=== PATIENT | male | born 1935 | race Caucasian/White ===

== ENCOUNTER → 2017-05-02 | Outpatient (CLI) | payer OTHER ==
[~2017-05-02] MED LIST: ACETAMINOPHEN325 M1 PO; ACYCLOVIR 400400 MG PO; ADVAIR 250-501 EACH INH; ADVAIR HFA115 MCG/21; ALBUTEROL2.5 MG/0.5 INH; APAP/CODEINE ELI5 M1 PO; ASPIRIN EC81 M1 PO; AVELOX 400 MG400 MG PO; BENICAR20 MG PO; BENZONATATE100 MG PO; CARDIZEM CD180 MG PO; CEFUROXIME250 MG PO; DUONEB 2.5-0.5 M3 ML INH; ELIQUIS5 MG PO; FLOMAX0.4 MG PO; FLONASE 0.05%50 MCG NASAL; LEVAQUIN 500 M500 M1 PO; LEVAQUIN 500 M500 M2 PO; LEXAPRO; LEXAPRO 10 MG T10 M1 PO; LEXAPRO20 MG PO; MEDROL4 M1 PO; MUCINEX TA600 MG/TA2 PO; MUCINEX600 MG PO; NEXIUM40 MG PO; NORCO 5-325 TA1 EACH PO; PANTOPRAZOLE SO40 M1 PO; PENICILLIN VK500 M1 PO; PREDNISONE; PREDNISONE 10 M10 MG PO; PREDNISONE 20 M20 M1 PO; PREDNISONE 20 M20 MG; PREDNISONE 20 M20 MG PO; PREDNISONE 5 MG5 M1 PO; PREDNISONE10 MG; PREDNISONE50 MG PO; PROAIR HFA8.5 GM IH; PROAIR HFA8.5 GM INH; PROBIOTIC1 EAC1 PO; PROVENTIL; SINGULAIR 10 MG10 M1 PO; SPIRIVA INH; TRAVATAN Z5 ML OP; ZPAK PO
== END ==
LOC: RAD 14:27
DX: J43.1 Panlobular emphysema (principal); J96.11 Chronic respiratory failure with hypoxia

== ENCOUNTER 2017-05-23 17:14 | Inpatient (IN) | payer OTHER ==
[~2017-05-23] VITALS: Ht 160 cm; Wt 76.6 kg
--- NOTE | ~2017-05-23 | D ---
[facility] [place] [address] DISCHARGE SUMMARY Name: UMM HERNANDEZ Room #: 215-P [facility] IN M.R.#: [id number] Admission: 05/23/17 Attend Phys: Alin Jennings Discharge: 05/30/17 Date of : 37 Report #: [id number] THIS REPORT FOR: //name// CC: Onel Jennings DATE OF SERVICE: 05/30/2017 HISTORY OF PRESENT ILLNESS: The patient is an 82-year-old man with chronic respiratory failure, severe COPD, who was admitted to the hospital with acute COPD exacerbation, and suspected lower respiratory tract infection. Please refer to admission H and P for details. The patient was hospitalized. Heater Installer was consulted. The patient was treated with IV steroids, as well as he was started on cefepime, and aggressive bronchodilator therapy. The patient had very slow improvement. Respiratory sounds remain significantly diminished. On 05/27/2017, the patient developed atrial fibrillation. He was treated with Cardizem drip. He converted to normal sinus rhythm. Scanning Clerk was consulted. Cardiac echo was taken, that showed normal ejection fraction. Pulmonary artery pressure was 35. The patient was changed to the oral Cardizem, and was started on Eliquis for anticoagulation. Given the patient's long hospital stay and overall debility, rehab was recommended. The patient will be transferred to the acute rehab later today. I spent more than 30 minutes to coordinate the patient's discharge from the hospital. FINAL DIAGNOSES: 1. Lower respiratory tract infection, clinically much better. 2. Pbenc-fa-pmkqqsj obstructive pulmonary disease exacerbation, baseline severe chronic obstructive pulmonary disease and chronic respiratory failure. Clinically much better. 3. Atrial fibrillation, developed on 05/27/2017. Treated with oral Cardizem and Eliquis. 4. Urinary retention. 5. Hypertension. 6. Obstructive sleep apnea. <ELECTRONICALLY SIGNED> By: Radha Echevarria MD 07/30/17 1443 1222 1234 Radha Echevarria MD /nt
--- NOTE | ~2017-05-23 | HC ---
[facility] [address] [address] CONSULTATION Name: UMM HERNANDEZ Room #: [facility]- ADM IN M.R.#: [id number] Admission: 05/23/17 Attend Phys: Alin Jennings Discharge: Date of : 36 Report #: [id number] THIS REPORT FOR: //name// CC: Onel Jennings MD DATE OF SERVICE: 05/24/2017 REFERRING PROVIDER: Alin Jennings DO REASON FOR CONSULTATION: COPD exacerbation. CHIEF COMPLAINT: Shortness of breath. HISTORY OF PRESENT ILLNESS: Our group was asked to see this patient in consultation while hospitalized at [facility], well known to me from office visits and prior hospital stays. He has not been hospitalized in the past few years. He has a longstanding history of very severe COPD and has been participating in pulmonary rehab and is on nocturnal Trilogy ventilation assist device to help manage his COPD. He was recently seen in the office May 02 with complaints of cough, shortness of breath, was placed on a treatment with Levaquin and prednisone. The patient apparently had improved, but had some recurrent symptoms of fever, cough, shortness of breath and represented to the Emergency Department, improved with some systemic steroids and bronchodilators, now admitted for further management. ALLERGIES: None known. PAST MEDICAL HISTORY: 1. Severe chronic obstructive pulmonary disease. 2. Gastroesophageal reflux disease. 3. Chronic hypoxemic respiratory failure and chronic hypercapnic respiratory failure, on Trilogy ASV mode at night. 4. History of obstructive sleep apnea. FAMILY HISTORY: Noncontributory due to advanced age. SOCIAL HISTORY: Ex-smoker, quitting in 1996. No alcohol consumption. OUTPATIENT MEDICATIONS: Include: 1. Tylenol p.r.n. 2. Proventil p.r.n. 3. Lexapro 10 mg daily. 4. Aspirin 81 mg daily. 5. Nexium 40 mg daily. [facility] [address] [place] [address] CONSULTATION Name: UMM HERNANDEZ Room #: [facility]#: [id number] Admission: 05/23/17 Attend Phys: Alin Jennings Discharge: Date of : 36 Report #: [id number] 6. Flonase. 7. Advair 250/50 twice daily. 8. Prednisone as needed for exacerbations. 9. Spiriva once daily. 10. Travoprost eye drops. REVIEW OF SYSTEMS: CONSTITUTIONAL: Noted fever, no chills or sweats. ENT: No upper respiratory congestion. CARDIOVASCULAR: No chest pains or palpitations. GASTROINTESTINAL: No nausea, vomiting, diarrhea, constipation or abdominal pain. GENITOURINARY: No dysuria, no frequency. INTEGUMENT: Denies any rash. MUSCULOSKELETAL: No joint pains or swelling. PHYSICAL EXAMINATION: VITAL SIGNS: Temperature 38.3 overnight, temperature current 37.0, pulse 100, respiratory 20, blood pressure 134/60, oxygen saturation 96%. GENERAL: This is a pleasant elderly male, in no distress. HEENT: Clear oropharynx. NECK: Supple, no lymphadenopathy. LUNGS: Diminished. Expiratory wheezes noted. No crackles. CARDIOVASCULAR: Heart regular. No murmurs noted. ABDOMEN: Soft, nontender, no masses. EXTREMITIES: No edema. IMAGING AND LABORATORY DATA: Chest x-ray revealed hyperinflation consistent with COPD and chronic basilar fibrotic changes. White blood cell count was 12,000, hemoglobin 13, hematocrit 40, platelet count 296. Arterial blood gas done on 3 liters nasal cannula revealed pH 7.40, pCO2 of 48, pO2 of 81, bicarbonate 29. Sodium 134, potassium 4.3, chloride 98, bicarbonate 32, BUN 17, creatinine 1.1, glucose 161. IMPRESSION: 1. Acute exacerbation of chronic obstructive pulmonary disease, likely due to lower respiratory infection. 2. Chronic hypercapnic hypoxemic respiratory failure. 3. Sleep apnea. 4. Underlying severe emphysema. SUGGESTIONS: 1. Steroids with bronchodilators. 2. Continue with current antibiotic therapy. 3. Await cultures. 4. Nasal [place]ab [place] [address] CONSULTATION Name: UMM HERNANDEZ Room #: [address] [place] [address] [place] M.R.#: [id number] Admission: 05/23/17 Attend Phys: Alin Jennings Discharge: Date of : 37 Report #: [id number] 5. Mobilize as tolerated. 6. Additional recommendations to follow. Son not at bedside for me to discuss and assist with translation of my findings at this time. <ELECTRONICALLY SIGNED> By: Anthony Denise MD 05/27/17 1535 1851 0306 Anthony Denise MD /nt
--- NOTE | ~2017-05-23 | 2DMMODE ---
[facility] [address] [place] [address] 2 D/M-MODE ECHOCARDIOGRAM Name: UMM HERNANDEZ Room #: 215-P ADM IN M.R.#: [id number] Admission: 05/23/17 Attend Phys: Alin Camejo Discharge: Date of : 37 Date of Service: 05/28/17 1541 Report #: [id number] THIS REPORT FOR: //name// APPROVED REPORT Study performed: 05/28/2017 14:41:46 EXAM: Comprehensive 2D, Doppler, and color-flow Echocardiogram Patient Location: Bedside Room #: [facility] Status: routine BSA: 1.85 HR: 113 bpm BP: 141/73 mmHg Rhythm: Atrial Fibrillation Other Information Study Quality: Adequate Indications Atrial Fibrillation Hx: HTN, COPD 2D Dimensions RVDd: 33.41 mm LVEF(%): 65.89 (>50%) IVSd: 12.31 (7-11mm) LVOT Diam: 20.35 (18-24mm) LVDd: 41.84 mm PWd: 9.30 (7-11mm) Ascending Ao: 34.87 (22-36mm) LVDs: 26.81 (25-40mm) Aortic Root: 35.01 mm Burns's LVEF: 65.89 % Volumes Left Atrial Volume (Systole) Single Plane 4CH: 33.10 mL Single Plane 2CH: 43.11 mL LA ESV Index: 22.00 mL/m2 Aortic Valve AoV Peak Donavan.: 1.55 m/s AO Peak Gr.: 9.67 mmHg LVOT Max P.41 mmHg LVOT Max V: 1.04 m/s BEKA Vmax: 2.18 cm2 Mitral Valve MV Decel. Time: 179.07 ms [facility] [address] [place] [address] 2 D/M-MODE ECHOCARDIOGRAM Name: MARYNIGELMI Room #: [address] [place] [address] [place] ..#: [id number] Admission: 05/23/17 Attend Phys: Alin Camejo Discharge: Date of : 37 Date of Service: 05/28/17 1541 Report #: [id number] MV E Max Donavan.: 1.08 m/s Pulmonary Valve PV Peak Donavan.: 1.19 m/s PV Peak Gr.: 5.79 mmHg Tricuspid Valve TR Peak Donavan.: 2.48 m/s RAP Estimate: 10.00 mmHg TR Peak Gr.: 24.73 mmHg PA Pressure: 35.00 mmHg Left Ventricle The left ventricle is normal size. Mild basal septal hypertrophy is present. Left ventricular systolic function is normal. LVEF is 50-55%. This study is not technically sufficient to allow evaluation of the LV diastolic function. Right Ventricle The right ventricle is normal size. The right ventricular systolic function is normal. Atria The left atrium size is normal. The right atrium size is normal. Aortic Valve Aortic valve is thickened and calcified. Trace aortic regurgitation. There is no aortic valvular stenosis. Mitral Valve Mitral valve leaflets are mildly thickened. Mild mitral annular calcification. Trace mitral regurgitation. Tricuspid Valve The tricuspid valve is normal in structure. Mild to moderate tricuspid regurgitation. Estimated PAP is 35mmHg. Pulmonic Valve The pulmonary valve is normal in structure. Trace pulmonic regurgitation. Great Vessels The aortic root is normal in size. The ascending aorta is normal in size. IVC is normal in size and collapses <50% with inspiration. Pericardium [facility] [address] [place] [address] 2 D/M-MODE ECHOCARDIOGRAM Name: UMM HERNANDEZ Room #: 215-P ADM IN M.R.#: [id number] Admission: 05/23/17 Attend Phys: Alin Camejo Discharge: Date of : 37 Date of Service: 05/28/17 1541 Report #: [id number] There is no pericardial effusion. <Conclusion> The left ventricle is normal size. Left ventricular systolic function is normal. The right ventricle is normal size. The left atrium size is normal. The right atrium size is normal. Trace aortic regurgitation. There is no aortic valvular stenosis. Mitral valve leaflets are mildly thickened. Mild mitral annular calcification. Trace mitral regurgitation. Mild to moderate tricuspid regurgitation. Estimated PAP is 35mmHg. <ELECTRONICALLY SIGNED> By: Sumanth Yoo MD 05/28/17 1541 1541 1541 Sumanth Yoo MD /INF
--- NOTE | ~2017-05-23 | EKG ---
[address] [address] ELECTROCARDIOGRAM REPORT Name: UMM HERNANDEZ Room #: 435-P ADM IN M.R.#: [id number] Admission: 05/23/17 Attend Phys: Alin Jennings Discharge: Date of : 36 Report #: [id number] THIS REPORT FOR: //name// [facility] ED Test Date: 2017-05-23 Test Time: 17:26:51 Pat Name: UMM HERNANDEZ Department: Room: 435 P Gender: M Poly Area Supervisor: DEBBI : 1935 Requested By: Maria C Pitt Order Number: [id number] MD: Measurements Intervals [place] Rate: 107 P: 97 IA: 154 QRS: 70 QRSD: 106 T: 64 QT: 307 QTc: 410 Interpretive Statements Sinus tachycardia Biatrial enlargement Inferior infarct, old Compared to ECG 01/29/2015 21:26:02 Myocardial infarct finding now present Sinus rhythm no longer present [email or web address] By: 1726 1726 Epiphany EpiphanyMD /EPI
--- NOTE | ~2017-05-23 | D ---
[facility] [address] [place] [address] DISCHARGE SUMMARY Name: UMM HERNANDEZ Room #: 215-P [facility] IN M.R.#: [id number] Admission: 05/23/17 Attend Phys: Alin Jennings Discharge: 05/30/17 Date of : 36 Report #: [id number] THIS REPORT FOR: //name// CC: Onel Jennings DATE OF SERVICE: 05/30/2017 ADDENDUM FINAL DIAGNOSES: 1. Lower respiratory tract infection, clinically much better. 2. Jinjs-zl-qmubiqq obstructive pulmonary disease exacerbation, baseline severe chronic obstructive pulmonary disease and chronic respiratory failure. Clinically much better. 3. Atrial fibrillation, developed on 05/27/2017. Treated with oral Cardizem and Eliquis. 4. Urinary retention. 5. Hypertension. 6. Obstructive sleep apnea. <ELECTRONICALLY SIGNED> By: Radha Echevarria MD 07/30/17 1444 1218 1225 Radha Echevarria MD /nt
--- NOTE | ~2017-05-23 | HC ---
[facility] [place] [address] CONSULTATION Name: UMM HERNANDEZ Room #: 215-P [facility] IN M.R.#: [id number] Admission: 05/23/17 Attend Phys: Alin Jennings Discharge: 05/30/17 Date of : 36 Report #: [id number] THIS REPORT FOR: //name// CC: Onel Jennings DATE OF SERVICE: 05/28/2017 HISTORY OF PRESENT ILLNESS: The patient is an 82-year-old male admitted with fever to 101 temperature, respiratory distress, COPD exacerbation, and pneumonia. He is noted to have an acute on chronic COPD exacerbation. His course has been complicated by urinary retention for which he was straight catheterized. He also has now had the onset of atrial fibrillation apparently last night and has been started on a diltiazem drip. We are seeing him in rehabilitation medicine consultation. PAST MEDICAL HISTORY: Includes COPD for which he was on O2 at home, 3 liters nasal cannula. Past history also includes hypertension, depression, and asthma. HABITS: Apparently never smoked. No history of alcohol abuse. ALLERGIES: No known drug allergies. SOCIAL HISTORY: Lives in a house with his son, no steps. Did not utilize gait aids premorbidly. REVIEW OF SYSTEMS: Does complain of some shortness of breath and just got back from chest x-ray. No complaints of abdominal pain or focal upper or lower extremity pain complaints. PHYSICAL EXAMINATION: GENERAL: The patient is an 82-year-old male, apparently primarily Asim-speaking who nevertheless could verbalize some basic Mauritanian phrases. He could follow basic 1-step commands. VITAL SIGNS: His last recorded temperature is 97.2, pulse 96, respirations 18, and blood pressure 124/70. NEUROLOGIC: Facies are symmetric. He is on nasal prong O2, currently 2.5 liters. He has functional range of motion of both upper extremities. No obvious focal weakness. DTRs are trace to 1. Lower extremities, no focal calf swelling. Functional range of motion with strength probably a grade 4-/5. Tone appeared to be intact. He has worked in physical therapy with sit to stand, standby assistance. Gait 120 feet min assist, handheld assistance. ASSESSMENT: An 82-year-old male with the following problem list: 1. Pulmonary rehabilitation. 2. Medical complexity with generalized debilitation. [address] [address] CONSULTATION Name: UMM HERNANDEZ Room #: [address] [place] [address] IN M.R.#: [id number] Admission: 05/23/17 Attend Phys: Alin Jennings Discharge: 05/30/17 Date of : 37 Report #: [id number] 3. Chronic obstructive pulmonary disease exacerbation with acute on chronic respiratory failure. 4. Atrial fibrillation, is now on a diltiazem drip. 5. Urinary retention, status post straight catheterization, is improved. 6. Elevated blood glucose secondary to steroids. 7. Obstructive sleep apnea. 8. Hypertension. 9. Chronic home oxygen use. PLAN: Occupational Therapy to reevaluate if the patient is amenable. Currently, he is on the diltiazem drip in the CCU. At this point, we will continue to follow along with you regarding his rehab therapy needs as he further medically stabilizes. <ELECTRONICALLY SIGNED> By: Onel Ni MD 05/31/17 1408 1640 1919 Oenl Ni MD /nt
--- NOTE | ~2017-05-23 | EKG ---
[address] [address] ELECTROCARDIOGRAM REPORT Name: UMM HERNANDEZ Room #: 435-P ADM IN M.R.#: [id number] Admission: 05/23/17 Attend Phys: Alin Jennings Discharge: Date of : 36 Report #: [id number] THIS REPORT FOR: //name// [facility] Test Date: 2017-05-28 Test Time: 01:31:49 Pat Name: UMM HERNANDEZ Department: Room: 435 P Gender: M Information Assistant: jhoan : 1935 Requested By: Mimi Sin Order Number: [id number] MD: Juanjo Roth Measurements Intervals [place] Rate: 146 P: [place]: QRS: 69 QRSD: 80 T: 46 QT: 310 QTc: 484 Interpretive Statements Atrial fibrillation with rapid V-rate Compared to ECG 05/23/2017 17:26:51 Atrial fibrillation has replaced sinus tachycardia Electronically Signed On 05-28-2017 7:56:06 INTERNAL AFFAIRS INVESTIGATOR by Juanjo Roth [email or web address] <ELECTRONICALLY SIGNED> By: Juanjo Roth MD, [facility] 05/28/17 0756 013 013 Juanjo Roth MD, FAC /EPI
--- NOTE | ~2017-05-23 | EKG ---
[address] [address] ELECTROCARDIOGRAM REPORT Name: UMM HERNANDEZ Room #: 435-P ADM IN M.R.#: [id number] Admission: 05/23/17 Attend Phys: Alin Jennings Discharge: Date of : 36 Report #: [id number] THIS REPORT FOR: //name// [facility] ED Test Date: 2017-05-23 Test Time: 17:26:51 Pat Name: UMM HERNANDEZ Department: Room: 435 P Gender: M Top Stop Attacher: DEBBI : 1935 Requested By: Maria C Pitt Order Number: [id number] MD: Juanjo Roth Measurements Intervals [place] Rate: 107 P: 97 [place]: 154 QRS: 70 QRSD: 106 T: 64 QT: 307 QTc: 410 Interpretive Statements Sinus tachycardia Right atrial abnormality Compared to ECG 01/29/2015 21:26:02 No significant change was found Electronically Signed On 05-24-2017 8:48:58 HAT STOCK LAMINATING MACHINE OPERATOR by Juanjo Roth [email or web address] <ELECTRONICALLY SIGNED> By: Juanjo Roth MD, [facility] 05/24/17 0848 1725 25 Juanjo Roth MD, FACC /EPI
[~2017-05-23 17:14] MED LIST changes: -CARDIZEM CD180 MG PO; -CEFUROXIME250 MG PO; -DUONEB 2.5-0.5 M3 ML INH; -ELIQUIS5 MG PO; -FLOMAX0.4 MG PO; -MEDROL4 M1 PO; -PANTOPRAZOLE SO40 M1 PO; -PROBIOTIC1 EAC1 PO
[2017-05-23 17:25] VITALS: BP 148/64
[2017-05-23 17:51] LABS: ABSOLUTE NEUTROPHILS 9.8 thou/uL (1.4-8.2); BASOPHILS 0.2 % (0.0-2.0); EOSINOPHILS 1.7 % (0.0-3.0); HEMATOCRIT 39.9 % (42.0-52.0); HEMOGLOBIN 13.1 gm/dL (14.0-18.0); LYMPHOCYTES 9.9 % (24.0-44.0); MCH 27.2 pg (26.0-34.0); MCHC 32.7 g/dL (28.0-37.0); MCV 83.2 fL (80.0-100.0); MONOCYTES 5.8 % (1.0-8.0); PLATELET COUNT 296 thou/uL (150-400); POLYS 82.4 % (36.0-66.0); RBC 4.79 mil/uL (4.50-6.00); RDW 15.1 % (10.5-14.5); WBC 11.8 thou/uL (4.0-11.0)
[2017-05-23 17:58] LABS: URINE BILIRUBIN NEGATIVE (Negative); URINE BLOOD 3+ (Negative); URINE CLARITY CLEAR; URINE COLOR YELLOW; URINE GLUCOSE-RANDOM* NEGATIVE (Negative); URINE KETONES NEGATIVE (Negative); URINE LEUKOCYTES-REFLEX NEGATIVE (Negative); URINE NITRITE-REFLEX NEGATIVE (Negative); URINE PROTEIN (DIPSTICK) TRACE (Negative); URINE SPECIFIC GRAVITY >= 1.030 (1.005-1.035); URINE UROBILINOGEN 0.2 E.U./dl (0.2-1.0)
[2017-05-23 18:01] LABS: CALCIUM 9.2 mg/dL (8.5-10.1); CREATININE 1.1 mg/dL (0.7-1.3); POTASSIUM 4.3 mmol/L (3.5-5.1)
[2017-05-23 18:05] LABS: BACTERIA-REFLEX 1-9 Few /HPF (None Seen); CASTS None Seen /LPF (None Seen); CRYSTALS None Seen /LPF (None Seen); SQUAMOUS None Seen /LPF (0-3); URINE RBC 3-10 Few /HPF (0-2); URINE WBC-REFLEX 0-5 Rare /HPF (0-5)
[2017-05-23 18:07] LABS: DIRECT BILIRUBIN 0.1 mg/dL (<0.1-0.3); TOTAL BILIRUBIN 0.3 mg/dL (<0.1-1.0)
[2017-05-23 18:32] LABS: BE(vivo) 3.2 mmol/L (-2 to +3); HCO3 28.9 mmol/L (22.0-26.0); PO2 80.9 mmHg (80.0-100.0); pH 7.397 (7.360-7.450); sO2 95.8 % (92.0-98.0)
[2017-05-23 20:02] VITALS: BP 121/49
[2017-05-23 20:22] VITALS: BP 121/49
[2017-05-24 03:45] VITALS: BP 136/73
[2017-05-24 16:00] VITALS: BP 134/60
[2017-05-24 20:22] VITALS: BP 116/59
[2017-05-24 22:11] LABS: GLYCOHEMOGLOBIN (HGB A1C) 6.1 % (4.8-5.6)
[2017-05-25 02:50] VITALS: BP 133/68
[2017-05-25 06:33] LABS: HEMATOCRIT 36.6 % (42.0-52.0); HEMOGLOBIN 11.6 gm/dL (14.0-18.0); MCH 26.9 pg (26.0-34.0); MCHC 31.7 g/dL (28.0-37.0); MCV 84.8 fL (80.0-100.0); RBC 4.32 mil/uL (4.50-6.00); RDW 15.2 % (10.5-14.5); WBC 17.5 thou/uL (4.0-11.0)
[2017-05-25 08:00] VITALS: BP 150/78
[2017-05-25 16:00] VITALS: BP 133/58
[2017-05-25 20:00] VITALS: BP 157/74
[2017-05-26 03:25] VITALS: BP 163/88
[2017-05-26 09:14] VITALS: BP 122/54
[2017-05-26 17:33] VITALS: BP 116/66
[2017-05-26 17:36] VITALS: BP 133/60
[2017-05-26 19:37] VITALS: BP 148/78
[2017-05-27 04:25] VITALS: BP 129/58
[2017-05-27 06:36] LABS: ABSOLUTE NEUTROPHILS 9.6 thou/uL (1.4-8.2); BASOPHILS 0.1 % (0.0-2.0); HEMATOCRIT 37.3 % (42.0-52.0); HEMOGLOBIN 12.1 gm/dL (14.0-18.0); LYMPHOCYTES 10.5 % (24.0-44.0); MCHC 32.5 g/dL (28.0-37.0); MCV 83.1 fL (80.0-100.0); MONOCYTES 4.4 % (1.0-8.0); PLATELET COUNT 367 thou/uL (150-400); RBC 4.49 mil/uL (4.50-6.00); RDW 15.4 % (10.5-14.5); WBC 11.3 thou/uL (4.0-11.0)
[2017-05-27 06:49] LABS: CALCIUM 8.9 mg/dL (8.5-10.1); MAGNESIUM 2.4 mg/dL (1.8-2.4); POTASSIUM 4.6 mmol/L (3.5-5.1)
[2017-05-27 08:00] VITALS: BP 188/102
[2017-05-27 16:00] VITALS: BP 156/78
[2017-05-27 22:50] VITALS: BP 144/77
[2017-05-28 01:43] VITALS: BP 135/67
[2017-05-28 05:09] VITALS: BP 127/70
[2017-05-28 08:00] VITALS: BP 141/73
[2017-05-28 15:26] VITALS: BP 124/70
[2017-05-28 20:38] VITALS: BP 126/68
[2017-05-29 00:15] VITALS: BP 118/64
[2017-05-29 04:30] VITALS: BP 120/59
[2017-05-29 09:05] VITALS: BP 123/66
[2017-05-29 11:58] VITALS: BP 139/63
[2017-05-29 15:50] VITALS: BP 133/51
[2017-05-29 19:22] VITALS: BP 131/68
[2017-05-30 03:25] LABS: ABSOLUTE NEUTROPHILS 6.8 thou/uL (1.4-8.2); HEMATOCRIT 38.7 % (42.0-52.0); HEMOGLOBIN 12.7 gm/dL (14.0-18.0); LYMPHOCYTES 12.8 % (24.0-44.0); MCH 27.3 pg (26.0-34.0); MCHC 32.8 g/dL (28.0-37.0); MCV 83.3 fL (80.0-100.0); MONOCYTES 3.7 % (1.0-8.0); PLATELET COUNT 387 thou/uL (150-400); POLYS 83.5 % (36.0-66.0); RBC 4.64 mil/uL (4.50-6.00); RDW 15.2 % (10.5-14.5); WBC 8.2 thou/uL (4.0-11.0)
[2017-05-30 03:31] LABS: CALCIUM 8.2 mg/dL (8.5-10.1); CREATININE 0.8 mg/dL (0.7-1.3); POTASSIUM 4.4 mmol/L (3.5-5.1)
[2017-05-30 03:53] VITALS: BP 138/68
[2017-05-30 07:35] VITALS: BP 123/53
[2017-05-30 11:45] VITALS: BP 134/57
[2017-05-30] MEDS ORDERED: PREDNISONE 20 M20 M1 PO (12:26)
[2017-05-30] MEDS ORDERED: PANTOPRAZOLE SO40 M1 PO (12:26)
[2017-05-30] MEDS ORDERED: CEFUROXIME250 MG PO (12:26)
[2017-05-30] MEDS ORDERED: ELIQUIS5 MG PO (12:26)
[2017-05-30] MEDS ORDERED: FLOMAX0.4 MG PO (12:26)
[2017-05-30] MEDS ORDERED: CARDIZEM CD180 MG PO (12:26)
[2017-05-30] MEDS ORDERED: DUONEB 2.5-0.5 M3 ML INH (12:26)
[2017-05-30 15:15] LABS: URINE BILIRUBIN NEGATIVE (Negative); URINE BLOOD TRACE (Negative); URINE CLARITY CLEAR; URINE COLOR YELLOW; URINE GLUCOSE-RANDOM* NEGATIVE (Negative); URINE KETONES NEGATIVE (Negative); URINE LEUKOCYTES-REFLEX NEGATIVE (Negative); URINE NITRITE-REFLEX NEGATIVE (Negative); URINE PROTEIN (DIPSTICK) NEGATIVE (Negative); URINE UROBILINOGEN 0.2 E.U./dl (0.2-1.0)
[2017-12-30] MEDS ORDERED: FLOMAX0.4 MG PO (16:12)
[2017-12-30] MEDS ORDERED: LEVAQUIN 500 M500 M1 PO (16:12)
[2017-12-30] MEDS ORDERED: MEDROL4 M1 PO (16:13)
== END 2017-05-30 16:18 | DRG 871 ==
LOC: ER 17:14 → 4S 18:14 → EROBS 18:14 → 4S 19:33 → ENTRNSPT 05-28 14:13 → EDTRNSPTSTS 05-28 14:22 → EDTRNSPT 05-28 14:22 → EDTRNSPTTYP 05-28 14:22 → 2N 05-28 14:40 → DELTRNSPT 05-28 14:45 → 2N 05-30 16:18
PROVIDERS: Hospitalist; Internal Medicine Endocrinology, Diabetes & Metabolism; Internal Medicine Pulmonary Disease; Nurse Practitioner; Physician Assistant
PROC: 5A09357 Assistance with Respiratory Ventilation, Less than 24 Consecutive Hours, Continuous Positive Airway Pressure (ICD-10-PCS; principal; 2017-05-25)
PROC: 5A09357 Assistance with Respiratory Ventilation, Less than 24 Consecutive Hours, Continuous Positive Airway Pressure (ICD-10-PCS; 2017-05-28)
PROC: 5A09357 Assistance with Respiratory Ventilation, Less than 24 Consecutive Hours, Continuous Positive Airway Pressure (ICD-10-PCS; 2017-05-29)
DX: A41.9 Sepsis, unspecified organism (principal); J18.9 Pneumonia, unspecified organism; E43 Unspecified severe protein-calorie malnutrition; J96.22 Acute and chronic respiratory failure with hypercapnia; J96.21 Acute and chronic respiratory failure with hypoxia; J44.1 Chronic obstructive pulmonary disease with (acute) exacerbation; J44.0 Chronic obstructive pulmonary disease with (acute) lower respiratory infection; I10 Essential (primary) hypertension; F32.9 Major depressive disorder, single episode, unspecified; J45.909 Unspecified asthma, uncomplicated; K59.00 Constipation, unspecified; K21.9 Gastro-esophageal reflux disease without esophagitis; G47.33 Obstructive sleep apnea (adult) (pediatric); I48.91 Unspecified atrial fibrillation; R33.9 Retention of urine, unspecified; Z79.82 Long term (current) use of aspirin; Z79.899 Other long term (current) drug therapy; Z28.21 Immunization not carried out because of patient refusal; Z87.891 Personal history of nicotine dependence; Z68.29 Body mass index [BMI] 29.0-29.9, adult
CPT/HCPCS: 10081; 10100

== ENCOUNTER 2017-05-30 10:27 | Inpatient (IN) | payer OTHER ==
[~2017-05-30] VITALS: Ht 160 cm; Wt 77.6 kg
--- NOTE | ~2017-05-30 | HC ---
[facility] [place] [address] CONSULTATION Name: UMM HERNANDEZ Room #: 513-P ADM IN M.R.#: [id number] Admission: 05/30/17 Attend Phys: Onel Ni MD Discharge: Date of : 36 Report #: [id number] THIS REPORT FOR: //name// CC: Onel Monaco CHIEF COMPLAINT: Urinary retention. HISTORY OF PRESENT ILLNESS: The patient is being seen today at the request of Dr. Jennings for evaluation and management of urinary retention. He is now in the Rehab Unit after having been hospitalized with pneumonia, sepsis and COPD. He reports perhaps mild slowing of his stream prior to admission, but is now having urinary incontinence and catheterized urine volumes above 500 mL. ALLERGIES: None. ILLNESSES: COPD, pneumonia, sepsis. CURRENT MEDICATIONS: Include losartan 100 mg daily, diltiazem 180 mg daily, citalopram 20 mg daily, aspirin 81 mg daily, Protonix mg daily, tamsulosin 0.4 mg b.i.d., prednisone 30 mg b.i.d., albuterol, ipratropium. Singulair 10 mg at bedtime, latanoprost at bedtime, cefuroxime 250 mg b.i.d., Eliquis 5 mg b.i.d. Budesonide 0.5 mg b.i.d. Senna laxative daily. REVIEW OF SYSTEMS: He denies shortness of breath or chest pain. PHYSICAL EXAMINATION: GENERAL: He is a comfortable gentleman sitting up in bed. VITAL SIGNS: Temperature is 36.9, blood pressure is 150/76, pulse 78, respirations 18. Cath urine volume earlier today was 550 mL. LABORATORY DATA: White count 9700, hemoglobin 13.0, hematocrit 39.3, platelets 412,000. Sodium 136, potassium 4.2, chloride 101, CO2 of 37, creatinine 0.8. IMPRESSION: Urinary retention with overflow incontinence. PLAN: Ideally he be best treated with intermittent catheterization, although the nurses have had somewhat of a traumatic time catheterizing him. Therefore, Doty will be placed for 72 hours or so, then he will be given a voiding trial. I explained this in detail with his son as an equities trader. <ELECTRONICALLY SIGNED> By: Onel Walls MD 06/05/17 1008 0706 1242 Onel Walls MD /nt
--- NOTE | ~2017-05-30 | PLAN ---
[facility] [place] [address] REHAB UNIT PLAN OF CARE Name: UMM HERNANDEZ Room #: 513-P [facility] IN M.R.#: [id number] Admission: 05/30/17 Attend Phys: Onel Ni MD Discharge: 06/06/17 Date of : 37 Report #: [id number] THIS REPORT FOR: //name// CC: Onel Monaco DATE OF SERVICE: 06/01/2017 PROGRESS NOTE/OVERALL PLAN OF CARE The patient is seen earlier. He was in no distress. Last recorded temperature 36.6, pulse 75, respirations 15, blood pressure 119/60. He has been working in therapies. Transfers are contact guard, gait 200 feet contact guard. upper body dressing, supervision with lower body dressing, contact guard. Nursing indicated that a Doty was inserted yesterday and he is followed by Urology. ASSESSMENT: 1. Pulmonary rehabilitation. 2. Acute exacerbation of chronic obstructive pulmonary disease. 3. Acute on chronic hypercapnic respiratory failure. 4. Lower respiratory tract infection. 5. Urinary retention with Urology involved. 6. Anxiety. 7. Tobacco abuse in the past. 8. Depression. 9. Hypertension. PLAN: The overall plan of care is based on the preadmission screen, post-admission physician evaluation and information garnered from therapy assessments. 1. Estimated length of stay is going to be probably at least 5-7 days and potentially longer if warranted depending upon how he does. 2. Medical prognosis is reasonably good. 3. Anticipated interventions includes the interdisciplinary acute inpatient rehabilitation program with PT and OT, rehab nursing assisting regarding medication management, skin care prophylaxis, bowel and bladder issues and nursing education. 4. Anticipated functional outcomes would be for him to become modified independent with basic mobility and ADLs potentially without gait aids. 5. Discharge destination would be for him to discharge back home with family where he lives with his son and [id number]. 6. Expected therapy by discipline includes PT and OT 1-1/2 hours per day each [address] [address] REHAB UNIT PLAN OF CARE Name: KACIE HERNANDEZMICHAEL Room #: 513-P [facility] IN ..#: [id number] Admission: 05/30/17 Attend Phys: Onel Ni MD Discharge: 06/06/17 Date of : 37 Report #: [id number] five days a week throughout the duration of the acute inpatient rehabilitation stay. <ELECTRONICALLY SIGNED> By: Onel Ni MD 06/11/17 1510 0715 0946 Onel Ni MD /[facility]
--- NOTE | ~2017-05-30 | H ---
[facility] [place] [address] HISTORY AND PHYSICAL Name: UMM HERNANDEZ Room #: 513-P ADM IN M.R.#: [id number] Admission: 05/30/17 Attend Phys: Onel Ni MD Discharge: Date of : 36 Report #: [id number] THIS REPORT FOR: //name// CC: Onel Monaco DATE OF SERVICE: 05/30/2017 HISTORY AND PHYSICAL AND POST-ADMISSION PHYSICIAN EVALUATION HISTORY OF PRESENT ILLNESS: The patient is an 82-year-old male who was originally admitted to [facility] on 05/23/2017 with a fever to 101, respiratory distress, COPD exacerbation and pneumonia. He was noted to have an acute on chronic COPD exacerbation. His course was complicated by urinary retention for which he has been straight catheterized. He also had the onset of atrial fibrillation and was started on a diltiazem drip. He has been needing nasal prong O2. He has hypercapnic hypoxemic respiratory failure secondary to emphysema. Cardiology has been involved regarding his atrial fibrillation as well as with his pulmonary disease. Internal Medicine has been assisting regarding his overall medical management, hypertension and elevated blood glucose secondary to steroids. He was able to be changed from diltiazem drip to oral Cardizem with conversion to normal sinus rhythm. He is anticoagulated with Eliquis. Urology saw him this morning and their plan is to place a Doty if his PVR remains elevated. Nurses did note some difficulty with straight catheterization last night. The patient has medical complexity with generalized debilitation and has now been admitted for acute in-hospital inpatient rehabilitation. PAST MEDICAL HISTORY: Includes COPD, depression and hypertension. HABITS: Past tobacco usage, quit several years ago. MEDICATIONS: Please see the full medication listing. Each of these medications was individually reconciled and includes his vitamins, herbals and supplements. There is some language barrier, but it does include those to the best of my knowledge. SOCIAL HISTORY: Lives with his son and dhnawppo-et-irr in a house, two stories with 5 steps and then another 10 steps. There are several grandchildren there as well. The patient was on 2 liters nasal cannula and was ambulatory without gait aids. He did get out in the community some with the canister. REVIEW OF SYSTEMS: No other complaints are noted regarding current chest pain, shortness of breath, abdominal discomfort. He had some difficulty with voiding last night. No focal extremity pain complaints. [facility] [address] [place] [address] HISTORY AND PHYSICAL Name: UMM HERNANDEZ Room #: 513-P [facility] IN [facility]#: [id number] Admission: 05/30/17 Attend Phys: Onel Ni MD Discharge: Date of : 36 Report #: [id number] PHYSICAL EXAMINATION: GENERAL: An 82-year-old male who was a little groggy, in no obvious distress. VITAL SIGNS: Temperature 36.9, pulse 78, respirations 18, blood pressure 152/76. He was seen earlier today on 3 liters nasal cannula. CHEST: Some diffuse decreased breath sounds. CARDIOVASCULAR: Sounded regular rate and rhythm. ABDOMEN: Bowel sounds positive, nontender. GENITOURINARY AND RECTAL: Deferred. EXTREMITIES: He has functional range of motion of both upper extremities with strength of grade 4-/5. DTRs are trace to 1. Lower extremities, no focal calf swelling, functional range of motion with strength grade 4 to 4-/5. DTRs are trace. No focal calf swelling. No distal lower extremity edema. ASSESSMENT: An 82-year-old white male with the following problems: 1. Pulmonary rehabilitation. 2. Acute exacerbation of chronic obstructive pulmonary disease. 3. Acute on chronic hypercapnic respiratory failure. 4. Lower respiratory tract infection. 5. Urinary retention with Urology involved. 6. Anxiety. 7. Tobacco abuse in the past. 8. Depression. 9. Hypertension. PLAN: The patient is admitted for acute in-hospital inpatient rehabilitation. From a postadmission physician evaluation perspective, there are no relevant changes since the preadmission screening. Please see the above review of prior and current medical and functional conditions and comorbidities. Please see the patient's previous and current functional status. As far as risk of complications, he does have the multiple medical comorbidities as noted above. Initial plan of care involves the interdisciplinary acute inpatient rehabilitation program with goal of maximizing the patient's functional independence, so he can hopefully return back to his prior living situation. Prognosis is reasonably good with estimated length of stay probably at least 5-10 days and likely longer if needed. Potential barriers would include his multiple medical comorbidities and decreased functional status. The patient meets diagnostic criteria for an acute in-hospital inpatient rehabilitation stay. He meets medical necessity criteria and we will have the multiple strategic sourcing consultant physicians continue to follow. He is on the acute rehab [address] [address] HISTORY AND PHYSICAL Name: UMM HERNANDEZ Room #: [address] [place] [address] IN M.R.#: [id number] Admission: 05/30/17 Attend Phys: Onel Ni MD Discharge: Date of : 36 Report #: [id number] leung. He does have the tolerance for therapies and has appropriate discharge goals back to the home setting. <ELECTRONICALLY SIGNED> By: Onel Ni MD 05/31/17 1408 0801 0826 Onel Ni MD /[facility]
--- NOTE | ~2017-05-30 | D ---
[facility] [place] [address] DISCHARGE SUMMARY Name: UMM HERNANDEZ Room #: 513-P [facility] IN M.R.#: [id number] Admission: 05/30/17 Attend Phys: Onel Ni MD Discharge: 06/06/17 Date of : 36 Report #: [id number] THIS REPORT FOR: //name// CC: Onel Monaco DATE OF SERVICE: 06/06/2017 ADDENDUM The patient was discharged home yesterday. He did miss some therapy on 06/05/2017 secondary to problems with his catheter and attempts with urination. <ELECTRONICALLY SIGNED> By: Onel Ni MD 06/13/17 1424 [id number] Onel Ni MD /nt
--- NOTE | ~2017-05-30 | HC ---
[facility] [place] [address] CONSULTATION Name: UMM HERNANDEZ Room #: 513-P [facility] IN M.R.#: [id number] Admission: 05/30/17 Attend Phys: Onel Ni MD Discharge: 06/06/17 Date of : 36 Report #: [id number] THIS REPORT FOR: //name// CC: Onel Monaco DATE OF SERVICE: 06/02/2017 NEUROBEHAVIORAL STATUS EXAMINATION ATTENDING PHYSICIAN: Onel Ni M.D. VIRTUAL RECRUITER: Fabio Huizar, PhD CLINICAL PRESENTATION: The patient is an 82-year-old male admitted to the [facility] Rehabilitation Unit for comprehensive inpatient rehabilitation program to improve functional mobility, activities of daily living and self-care and mental status secondary to deficits from acute exacerbation of COPD. His diagnoses include acute on chronic hypercapnic respiratory failure, lower respiratory tract infection, urinary retention, anxiety, tobacco abuse in the past, depression and hypertension. The patient is reported to have been in his usual state of health when he developed a fever and respiratory distress. A complete description of his medical condition and history along with medications can be found in his medical record. Neuropsychological consultation was requested to provide assistance in the assessment of cognitive and emotional status and to provide recommendations and services. Prior to this most recent medical event, he was living with the assistance of his son and [id number]-ppm. He has lived with them for about 25 years. The patient has 3 sons. He is a high school graduate plus approximately 2 years of college. He has required help with management of bill paying and medication. His family has provided that assistance. His in 2007. The patient was employed for [employer] for 25 years; however, his use of Nicaraguan is reported as very poor. TECHNIQUES UTILIZED: Clinical interview, review of medical records, staff consultation and behavioral observation, and family interview -- son. EXAMINATION FINDINGS: The patient was alert and cooperative with the assessment. However, he does not speak [place]ar[place]uan to a satisfactory extent. A formal assessment and interview of symptoms could not be completed. I called and talked with his son in regard to concerns they are having about his level of functioning and cognitive and emotional state. His son does not report the observation of cognitive disorder. His son reports his memory, word finding, thought organization, attention and concentration to be within normal limits. [address] [address] CONSULTATION Name: UMM HERNANDEZ Room #: [address] [place] [address] IN M.R.#: [id number] Admission: 05/30/17 Attend Phys: Onel Ni MD Discharge: 06/06/17 Date of : 36 Report #: [id number] His son does not report the patient as appearing depressed; however, he does indicate that he has had anxiety regarding his medical wellbeing and difficulty with breathing. The patient was unable to copy a simple geometric design. As indicated, mental status exam was not completed because of language issues. The patient not reported to adequately understand or communicate in [place]araguan. 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 RECOMMENDATIONS: The patient is currently living with his son and gdvyczyi-wy-dvu and they provide interpretive assistance as well as help with managing instrumental activities of daily living. The use of breathing strategies and pulmonary rehabilitation will assist in the management of anxiety. Reassurance and support along with his son's ability to continue and manage his medical condition should assist with overall treatment of anxiety. Cognition was not formally assessed and will not be commented on. However, the family appears to be available and involved with providing the support that he needs for management of his medical and nutritional wellbeing. Thank you very much for allowing me to provide the consultation on this patient. <ELECTRONICALLY SIGNED> By: Fabio Huizar, PhD 06/10/17 1813 1438 1854 Fabio Huizar, PhD /nt
[2017-05-30] MEDS ORDERED: ELIQUIS5 MG PO (12:26)
[2017-05-30] MEDS ORDERED: DUONEB 2.5-0.5 M3 ML INH (12:26)
[2017-05-30] MEDS ORDERED: PREDNISONE 20 M20 M1 PO (12:26)
[2017-05-30] MEDS ORDERED: CARDIZEM CD180 MG PO (12:26)
[2017-05-30] MEDS ORDERED: PANTOPRAZOLE SO40 M1 PO (12:26)
[2017-05-30] MEDS ORDERED: FLOMAX0.4 MG PO (12:26)
[2017-05-30] MEDS ORDERED: CEFUROXIME250 MG PO (12:26)
[2017-05-30 16:38] VITALS: BP 128/68
[2017-05-30 20:52] VITALS: BP 150/76
[2017-05-31 03:18] LABS: HEMATOCRIT 39.3 % (42.0-52.0); MCH 27.6 pg (26.0-34.0); MCV 83.7 fL (80.0-100.0); RBC 4.7 mil/uL (4.50-6.00); RDW 15.5 % (10.5-14.5); WBC 9.7 thou/uL (4.0-11.0)
[2017-05-31 03:23] LABS: ANION GAP < 0 mmol/L (7-16); BUN 36 mg/dL (7-18); CALCIUM 8.1 mg/dL (8.5-10.1); CHLORIDE 101 mmol/L (98-107); CO2 37 mmol/L (21-32); CREATININE 0.8 mg/dL (0.7-1.3); GLUCOSE 151 mg/dL (74-106); POTASSIUM 4.2 mmol/L (3.5-5.1); SODIUM 136 mmol/L (136-145)
[2017-05-31 10:08] VITALS: BP 123/60
[2017-05-31 17:48] LABS: URINE BILIRUBIN NEGATIVE (Negative); URINE BLOOD 2+ (Negative); URINE CLARITY CLEAR; URINE COLOR YELLOW; URINE GLUCOSE-RANDOM* NEGATIVE (Negative); URINE KETONES NEGATIVE (Negative); URINE LEUKOCYTES-REFLEX NEGATIVE (Negative); URINE NITRITE-REFLEX NEGATIVE (Negative); URINE PROTEIN (DIPSTICK) NEGATIVE (Negative); URINE SPECIFIC GRAVITY 1.015 (1.005-1.035); URINE UROBILINOGEN 0.2 E.U./dl (0.2-1.0)
[2017-05-31 18:17] LABS: BACTERIA-REFLEX 1-9 Few /HPF (None Seen); CASTS None Seen /LPF (None Seen); CRYSTALS None Seen /LPF (None Seen); SQUAMOUS None Seen /LPF (0-3); URINE WBC-REFLEX None Seen /HPF (0-5)
[2017-05-31 19:52] VITALS: BP 119/60
[2017-06-01 08:30] VITALS: BP 123/60
[2017-06-01 19:51] VITALS: BP 129/49
[2017-06-02 08:00] VITALS: BP 142/60
[2017-06-02 21:16] VITALS: BP 144/53
[2017-06-03 08:00] VITALS: BP 128/60
[2017-06-03 20:24] VITALS: BP 143/46
[2017-06-04 06:15] LABS: HEMATOCRIT 38.6 % (42.0-52.0); HEMOGLOBIN 12.6 gm/dL (14.0-18.0); MCH 27.3 pg (26.0-34.0); MCHC 32.6 g/dL (28.0-37.0); MCV 83.8 fL (80.0-100.0); PLATELET COUNT 318 thou/uL (150-400); RDW 15.6 % (10.5-14.5); WBC 14.4 thou/uL (4.0-11.0)
[2017-06-04 06:23] LABS: CALCIUM 8.3 mg/dL (8.5-10.1); CREATININE 0.9 mg/dL (0.7-1.3); MAGNESIUM 2.2 mg/dL (1.8-2.4)
[2017-06-04 07:50] LABS: ABSOLUTE NEUTROPHILS 12.2 thou/uL (1.4-8.2); ANISOCYTOSIS 1+; METAMYELOCYTES 1 %
[2017-06-04 08:15] VITALS: BP 147/55
[2017-06-04 19:40] VITALS: BP 135/60
[2017-06-05 08:20] VITALS: BP 132/60
[2017-06-05 19:32] VITALS: BP 120/49
[2017-06-06 08:00] VITALS: BP 111/57
[2017-06-06 11:30] VITALS: BP 111/57
[2017-06-06] MEDS ORDERED: PROBIOTIC1 EAC1 PO (13:46)
[2017-06-06] MEDS ORDERED: ELIQUIS5 MG PO (13:46)
[2017-06-06] MEDS ORDERED: LEXAPRO 10 MG T10 M1 PO (13:46)
[2017-06-06] MEDS ORDERED: PREDNISONE 10 M10 MG PO (13:46)
[2017-06-06] MEDS ORDERED: FLOMAX0.4 MG PO (13:46)
[2017-06-06] MEDS ORDERED: CARDIZEM CD180 MG PO (13:46)
[2017-12-30] MEDS ORDERED: LEVAQUIN 500 M500 M1 PO (16:12)
[2017-12-30] MEDS ORDERED: FLOMAX0.4 MG PO (16:12)
[2017-12-30] MEDS ORDERED: MEDROL4 M1 PO (16:13)
== END 2017-06-06 17:55 | disposition home health service (06) | DRG 947 ==
LOC: ENTRNSPT 06-06 17:37
PROVIDERS: Nurse Practitioner; Physical Medicine & Rehabilitation
DX: R53.81 Other malaise (principal); J96.22 Acute and chronic respiratory failure with hypercapnia; J18.9 Pneumonia, unspecified organism; J96.21 Acute and chronic respiratory failure with hypoxia; J44.1 Chronic obstructive pulmonary disease with (acute) exacerbation; J44.0 Chronic obstructive pulmonary disease with (acute) lower respiratory infection; F32.9 Major depressive disorder, single episode, unspecified; Z87.891 Personal history of nicotine dependence; R33.9 Retention of urine, unspecified; F41.9 Anxiety disorder, unspecified; N39.490 Overflow incontinence; I48.91 Unspecified atrial fibrillation; Z99.81 Dependence on supplemental oxygen; G47.33 Obstructive sleep apnea (adult) (pediatric); I50.9 Heart failure, unspecified; I11.0 Hypertensive heart disease with heart failure
CPT/HCPCS: 10112

== ENCOUNTER 2017-10-28 22:53 | Inpatient (IN) | payer OTHER ==
[~2017-10-28] VITALS: Ht 160 cm; Wt 79.7 kg
--- NOTE | ~2017-10-28 | EKG ---
[address] [address] ELECTROCARDIOGRAM REPORT Name: UMM HERNANDEZ Room #: 208-P ADM IN M.R.#: [id number] Admission: 10/29/17 Attend Phys: Elsi Fitzpatrick MD Discharge: Date of : 36 Report #: [id number] THIS REPORT FOR: //name// [facility] ED Test Date: 2017-10-28 Test Time: 23:01:30 Pat Name: UMM HERNANDEZ Department: Room: Gender: M Fiber Analyst: ROZ : 1935 Requested By: Karlie oBwers Order Number: [id number] MD: Juanjo Roth Measurements Intervals [place] Rate: 69 P: 56 [place]: 156 QRS: 57 QRSD: 105 T: 45 QT: 374 QTc: 401 Interpretive Statements Sinus rhythm Normal tracing Compared to ECG 05/28/2017 01:31:49 Atrial fibrillation no longer present Electronically Signed On 10-29-2017 8:12:59 CDT by Juanjo Roth [email or web address] <ELECTRONICALLY SIGNED> By: Juanjo Roth MD, [facility] 10/29/1712 00 00 Juanjo Roth MD, FACC /EPI
[~2017-10-28 22:53] MED LIST changes: +CARDIZEM CD180 MG PO; +CEFUROXIME250 MG PO; +DUONEB 2.5-0.5 M3 ML INH; +ELIQUIS5 MG PO; +FLOMAX0.4 MG PO; +PANTOPRAZOLE SO40 M1 PO; +PROBIOTIC1 EAC1 PO
[2017-10-28 22:54] VITALS: BP 165/66
[2017-10-28 23:23] LABS: ABSOLUTE NEUTROPHILS 9.1 thou/uL (1.4-8.2); BASOPHILS 0.1 % (0.0-2.0); EOSINOPHILS 0.1 % (0.0-3.0); HEMATOCRIT 40.6 % (42.0-52.0); HEMOGLOBIN 13.5 gm/dL (14.0-18.0); LYMPHOCYTES 9.7 % (24.0-44.0); MCH 27.2 pg (26.0-34.0); MCHC 33.3 g/dL (28.0-37.0); MCV 81.7 fL (80.0-100.0); PLATELET COUNT 307 thou/uL (150-400); POLYS 89.1 % (36.0-66.0); RBC 4.97 mil/uL (4.50-6.00); RDW 14.9 % (10.5-14.5); WBC 10.2 thou/uL (4.0-11.0)
[2017-10-28 23:27] LABS: ANION GAP 4 mmol/L (7-16); BUN 21 mg/dL (7-18); CALCIUM 9.4 mg/dL (8.5-10.1); CHLORIDE 100 mmol/L (98-107); CO2 31 mmol/L (21-32); CREATININE 1.1 mg/dL (0.7-1.3); GLUCOSE 198 mg/dL (74-106); POTASSIUM 4.4 mmol/L (3.5-5.1); SODIUM 135 mmol/L (136-145)
[2017-10-28 23:37] LABS: TROPONIN-I <0.06 ng/mL (<0.06)
[2017-10-29] VITALS (7 sets, daily range): BP systolic 137–176; BP diastolic 63–111
[2017-10-30 08:57] VITALS: BP 127/58
[2017-10-30 11:23] VITALS: BP 127/58
[2017-10-30 15:35] VITALS: BP 120/46
[2017-10-30 19:45] VITALS: BP 132/53
[2017-10-31 04:11] VITALS: BP 150/60
[2017-10-31 04:55] LABS: ANION GAP 7 mmol/L (7-16); BUN 42 mg/dL (7-18); CALCIUM 8.6 mg/dL (8.5-10.1); CHLORIDE 98 mmol/L (98-107); CHOLESTEROL 176 mg/dL (<200); CO2 31 mmol/L (21-32); CREATININE 1.5 mg/dL (0.7-1.3); GLUCOSE 202 mg/dL (74-106); HDL CHOLESTEROL 44 mg/dL (>40); LDL CHOLESTEROL 111 mg/dL (<100); POTASSIUM 4.6 mmol/L (3.5-5.1); SODIUM 136 mmol/L (136-145); TRIGLYCERIDE 108 mg/dL (<150); VLDL 22 mg/dL (<40)
[2017-10-31 05:06] LABS: HEMATOCRIT 39.2 % (42.0-52.0); HEMOGLOBIN 12.6 gm/dL (14.0-18.0); MCH 26.6 pg (26.0-34.0); MCHC 32.2 g/dL (28.0-37.0); MCV 82.6 fL (80.0-100.0); RBC 4.75 mil/uL (4.50-6.00); WBC 16.4 thou/uL (4.0-11.0)
[2017-10-31 05:15] LABS: TSH 0.197 uIU/mL (0.358-3.740)
[2017-10-31 08:25] VITALS: BP 150/69
[2017-10-31] MEDS ORDERED: MUCINEX600 MG PO (10:15)
[2017-10-31] MEDS ORDERED: PREDNISONE 10 M10 MG PO (10:16)
[2017-10-31 10:53] VITALS: BP 150/69
[2017-11-01 23:06] LABS: ADENOVIRUS Negative (Negative); INFLUENZA A Negative (Negative); INFLUENZA B Negative (Negative); METAPNEUMOVIRUS Negative (Negative); PARAINFLUENZA 1 Negative (Negative); PARAINFLUENZA 2 Negative (Negative); PARAINFLUENZA 3 Negative (Negative); RHINOVIRUS Negative (Negative); RSV A Negative (Negative); RSV B Negative (Negative)
== END 2017-10-31 12:30 | disposition home or self-care (01) | DRG 189 ==
LOC: ER 22:53 → EROBS 10-29 01:06 → 2N 10-29 01:06 → ENTRNSPT 10-31 11:47 → EDTRNSPTSTS 10-31 11:50 → 2N 10-31 12:30
PROVIDERS: Emergency Medicine; Hospitalist; Nurse Practitioner Acute Care; Nurse Practitioner Family
PROC: 5A09357 Assistance with Respiratory Ventilation, Less than 24 Consecutive Hours, Continuous Positive Airway Pressure (ICD-10-PCS; principal; 2017-10-29)
PROC: 5A09357 Assistance with Respiratory Ventilation, Less than 24 Consecutive Hours, Continuous Positive Airway Pressure (ICD-10-PCS; 2017-10-30)
PROC: 5A09357 Assistance with Respiratory Ventilation, Less than 24 Consecutive Hours, Continuous Positive Airway Pressure (ICD-10-PCS; 2017-10-31)
DX: J96.21 Acute and chronic respiratory failure with hypoxia (principal); J44.1 Chronic obstructive pulmonary disease with (acute) exacerbation; I10 Essential (primary) hypertension; F32.9 Major depressive disorder, single episode, unspecified; F41.9 Anxiety disorder, unspecified; I48.91 Unspecified atrial fibrillation; G47.33 Obstructive sleep apnea (adult) (pediatric); I48.2 Chronic atrial fibrillation; K21.9 Gastro-esophageal reflux disease without esophagitis; M62.84 Sarcopenia; E03.9 Hypothyroidism, unspecified; D72.829 Elevated white blood cell count, unspecified; Z87.891 Personal history of nicotine dependence; Z79.82 Long term (current) use of aspirin; Z79.899 Other long term (current) drug therapy
CPT/HCPCS: 10081

== ENCOUNTER 2018-04-11 23:16 | Inpatient (IN) | payer OTHER ==
[~2018-04-11] VITALS: Ht 157.5 cm; Wt 78.0 kg
[~2018-04-11 23:16] MED LIST changes: +MEDROL4 M1 PO
[2018-04-11 23:22] VITALS: BP 165/57
[2018-04-11 23:53] LABS: ANION GAP 6 mmol/L (7-16); BUN 19 mg/dL (7-18); CALCIUM 9.8 mg/dL (8.5-10.1); CHLORIDE 98 mmol/L (98-107); CO2 32 mmol/L (21-32); CREATININE 1.1 mg/dL (0.7-1.3); GLUCOSE 159 mg/dL (74-106); POTASSIUM 4.3 mmol/L (3.5-5.1); SODIUM 136 mmol/L (136-145)
[2018-04-11 23:55] LABS: ABSOLUTE NEUTROPHILS 11.9 thou/uL (1.4-8.2); BASOPHILS 0.5 % (0.0-2.0); HEMATOCRIT 44.3 % (42.0-52.0); HEMOGLOBIN 14.8 gm/dL (14.0-18.0); LYMPHOCYTES 16.8 % (24.0-44.0); MCH 27.7 pg (26.0-34.0); MCHC 33.4 g/dL (28.0-37.0); MCV 83.1 fL (80.0-100.0); MONOCYTES 5.2 % (1.0-8.0); PLATELET COUNT 374 thou/uL (150-400); POLYS 76.5 % (36.0-66.0); RBC 5.33 mil/uL (4.50-6.00); RDW 14.6 % (10.5-14.5); WBC 15.6 thou/uL (4.0-11.0)
[2018-04-11 23:57] LABS: URINE CLARITY CLEAR; URINE COLOR YELLOW
[2018-04-11 23:58] LABS: URINE BILIRUBIN NEGATIVE (Negative); URINE BLOOD 2+ (Negative); URINE GLUCOSE-RANDOM* NEGATIVE (Negative); URINE KETONES NEGATIVE (Negative); URINE LEUKOCYTES-REFLEX NEGATIVE (Negative); URINE NITRITE-REFLEX NEGATIVE (Negative); URINE PROTEIN (DIPSTICK) TRACE (Negative); URINE SPECIFIC GRAVITY >= 1.030 (1.005-1.035); URINE UROBILINOGEN 0.2 E.U./dl (0.2-1.0)
[2018-04-12] VITALS (9 sets, daily range): BP systolic 123–173; BP diastolic 54–89
[2018-04-12 00:04] LABS: ALBUMIN 3.7 g/dL (3.4-5.0); LIPASE 120 U/L (73-393); SGOT 20 U/L (15-37); SGPT 26 U/L (30-65); TOTAL BILIRUBIN 0.3 mg/dL (<0.1-1.0); TROPONIN-I <0.06 ng/mL (<0.06)
[2018-04-12 00:04] LABS: CASTS None Seen /LPF (None Seen); MUCUS 0-3 Light strn/LPF (None Seen); SQUAMOUS 4-10 Moderate /LPF (0-3); URINE WBC-REFLEX 0-5 Rare /HPF (0-5)
[2018-04-12 00:05] LABS: BACTERIA-REFLEX 1-9 Few /HPF (None Seen); CRYSTALS None Seen /LPF (None Seen); URINE RBC 0-2 Rare /HPF (0-2)
--- NOTE | 2018-04-12 00:07 | NUR ---
RT AT BEDSIDE FOR TREATMENT AT THIS TIME
--- NOTE | 2018-04-12 03:17 | NUR ---
REPORT TO ROX, INPATIENT NURSE. EDUCATION PROVIDED TO SON AT BEDSIDE.
--- NOTE | 2018-04-12 03:24 | NUR ---
NG TUBE TO LEFT NARE AT 65CM AT TIP OF NOSE. TAPED IN PLACE. SMALL AMOUNT OF GREEN FLUID RETURNED. PLACEMENT CONFIRMED BY AUSCULTATION. PATIENT TOLERATED PROCEDURE WELL.
--- NOTE | 2018-04-12 05:21 | NUR ---
PT ARRIVED ON UNIT 0330 . NO PAIN OR SOB AT THE TIME OF ARRIVAL. VITALS STABLE WITH BP ELEVATED. BOWEL SOUNDS HYPOACTIVE AND DISTANT. SONS AT BEDSIDE. NO TURKISH SPEAKER, SONS INTERPRETING FOR HIM. WHEEZES AND COURSES NOTICED HIS LONG GAMBINO BUT DENIES SOB, AND CHEST PAIN. PT HERE FOR SBO, GOLD STAMPER CURRENTLY, POSSIBLE SURGERY TODAY. CONSENT FORMS SIGNED. IV NS AT 125/HR.ADMISSION DOCUMENTATIONS COMPLETE. WILL CONTINUE TO FOLLOW POC.
--- NOTE | 2018-04-12 13:51 | EKG ---
[place] [address] [address] [place] [place] [address] ELECTROCARDIOGRAM REPORT Name: UMM HERNANDEZ Room #: 349-I ADM IN M.R.#: [id number] Admission: 04/12/18 Attend Phys: Alin Jennings Discharge: Date of : 36 Report #: [id number] THIS REPORT FOR: //name// [facility] ED Test Date: 2018-04-11 Test Time: 23:47:41 Pat Name: UMM HERNANDEZ Department: Room: 349 Gender: M Lead Burner Apprentice: VIANNEY : 1935 Requested By: Brent Hernandez Order Number: [id number] MD: Juanjo Roth Measurements Intervals [place] Rate: 77 P: 71 [place]: 156 QRS: 47 QRSD: 105 T: 56 QT: 378 QTc: 428 Interpretive Statements Sinus rhythm Possible inferior infarct, old Compared to ECG 12/26/2017 21:00:59 Inferior Q waves are slightly more prominent Electronically Signed On 04-12-2018 13:51:29 PICK UP ATTENDANT by Juanjo Roth [email or web address] <ELECTRONICALLY SIGNED> By: Juanjo Roth MD, [facility] 04/12/18 1351 [id number] Juanjo Roth MD, FAC /EPI
--- NOTE | 2018-04-12 18:46 | NUR ---
ASSUMED CARE OF PATIENT AT 0700. PT/VITALS STABLE. PATIENT COMPLAINS OF GENERALIZED ABD PAIN AT 10/10 AND RELIEVED WITH FENTANYL. PATIENT HAS A NG TUBE IN HIS LEFT NARE. PATIENT TAKEN TO SURGERY AT 1200 AND RETURNED AT 1500 WITHOUT HIS NG TUBE. PATIENT HAS 4 LAPAROSCOPIC INCISION SITES CLOSED WITH DERMA COLE. NO REDNESS, EDEMA OR DRAINAGE. PATIENT COMPLAINING OF GENERALIZED ABDOMINAL PAIN AT 10/10 AND RECEIVING RELIEF WITH FENTANYL Q 2 HOURS. PATIENT'S FAMILY AT THE BEDSIDE. CALL PLACED TO DR. PAULINO TO VERIFY (FOR THE FAMILY) THAT THE PATIENT IS ONLY ALLOWED ICE CHIPS AND TO NOTIFY HIM THAT THE PATIENT WAS KNEELING ON THE BED LEANING ON THE BED RAILS AT 1600. DR. PAULINO NOTIFIED AND EXPLAINED TO THE PATIENT'S SON. WILL CONTINUE TO MONITOR AND FOLLOW WITH POC.
[2018-04-13 03:50] VITALS: BP 134/62
[2018-04-13 05:41] LABS: ABSOLUTE NEUTROPHILS 9.8 thou/uL (1.4-8.2); BASOPHILS 0.2 % (0.0-2.0); EOSINOPHILS 0.1 % (0.0-3.0); HEMATOCRIT 42.8 % (42.0-52.0); HEMOGLOBIN 13.8 gm/dL (14.0-18.0); LYMPHOCYTES 12.7 % (24.0-44.0); MCH 27.3 pg (26.0-34.0); MCHC 32.4 g/dL (28.0-37.0); MCV 84.3 fL (80.0-100.0); MONOCYTES 5.5 % (1.0-8.0); PLATELET COUNT 301 thou/uL (150-400); POLYS 81.5 % (36.0-66.0); RBC 5.07 mil/uL (4.50-6.00); RDW 14.6 % (10.5-14.5)
[2018-04-13 05:55] LABS: CALCIUM 8.9 mg/dL (8.5-10.1); POTASSIUM 4.3 mmol/L (3.5-5.1)
[2018-04-13 07:25] VITALS: BP 117/69
--- NOTE | 2018-04-13 07:27 | NUR ---
Pt a/o x4, on O2 3L NC. S/p lap exp umb hernia repair. Abdomen hypoactive, soft, distended. C/o generalized abdominal pain, pain under control with pain meds administration per order. Temp decreased to 99.0 F from 100.5 with applications of ice paks. All VSS. Will continue to monitor.
[2018-04-13 12:30] VITALS: BP 159/103
[2018-04-13 14:22] VITALS: BP 143/76
[2018-04-13 15:32] VITALS: BP 112/61
--- NOTE | 2018-04-13 16:03 | NUR ---
Assumed care of patient at 0700. Vitals have been mostly stable throughout shift - BP high this afternoon and also with low-grade fever. Pain medication administered at this time, both Fentanyl and PO Teton. Recheck shows improvement in both BP and temperature. PO Diltiazem restarted today. Patient alert and oriented. Complaints of abdominal pain - controlled well with PO Teton this shift. Abdomen is tender to touch, round, distended; somewhat reddened. Incisions remain with Dermabond, C/D/I. Dr. Song aware of abdominal distention, redness and low-grade fevers. Continue to closely monitor. Advanced to clear liquids today; not much PO intake, but has been tolerating well. No nausea. Up with one assist to commode. Bilateral SCDs remain in place, fall precautions in place. One of the patient's sons has remained at bedside throughout day. Slowly progressing towards POC. Will continue to monitor.
[2018-04-13 20:06] VITALS: BP 131/54
--- NOTE | 2018-04-14 02:55 | NUR ---
ASSUMED CARE OF PATIENT AT 1900. VSS, STATES PAIN IS BETTER. DESAT INTO THE 70'S. PLACED ON HOME CPAP, O2 TITRATED TO KEEP SATS ABOVE 90. FAMILY AT BEDSIDE, UPDATED TO POC. PROGRESSING SLOWLY TOWARDS POC.
[2018-04-14 04:25] VITALS: BP 150/63
[2018-04-14 05:20] LABS: ABSOLUTE NEUTROPHILS 8.8 thou/uL (1.4-8.2); BASOPHILS 0.4 % (0.0-2.0); EOSINOPHILS 0.8 % (0.0-3.0); HEMATOCRIT 37.7 % (42.0-52.0); HEMOGLOBIN 12.2 gm/dL (14.0-18.0); LYMPHOCYTES 17.1 % (24.0-44.0); MCH 27.3 pg (26.0-34.0); MCHC 32.5 g/dL (28.0-37.0); MCV 84.1 fL (80.0-100.0); MONOCYTES 7.5 % (1.0-8.0); PLATELET COUNT 281 thou/uL (150-400); POLYS 74.2 % (36.0-66.0); RBC 4.49 mil/uL (4.50-6.00); RDW 14.8 % (10.5-14.5); WBC 11.9 thou/uL (4.0-11.0)
[2018-04-14 05:35] LABS: CALCIUM 8.8 mg/dL (8.5-10.1); CREATININE 1.2 mg/dL (0.7-1.3); POTASSIUM 4.2 mmol/L (3.5-5.1)
[2018-04-14 07:10] VITALS: BP 134/58
--- NOTE | 2018-04-14 08:30 | NUR ---
ASSUMMED PT CARE AT 0315AM. PT REPORTEDLY HAS INCREASED OXYGEN NEEDS OVERNIGHT. PT ON CPAP WITH 12L OXYGEN BLED IN. O2 SATS 98%. SON ASKING WHEN RT WILL REASSESS AND TURN DOWN OXYGEN /WHEN POSSIBLE. DID SPEAK WITH MARILIN RT WHOM WILL REASSESS PT SOON.
--- NOTE | 2018-04-14 09:46 | NUR ---
ASSESSMENT: CM REVIEWED CHART AND MET WITH PATIENT AND HIS SON AT THE BEDSIDE. PTS IS FROM [place] AND DOES NOT SPEAK MUCH SURINAMESE. SON SPEAKS FLUENT SURINAMESE. CM SPOKE WITH PATIENTS SON WHO STATES THAT PATIENT LIVES AT HOME WITH FAMILY. SON REPORTS THAT FAMILY IS USUALLY ALWAYS WITH PATIENT. PT HAS ABOUT 5 STEPS WITH HANDRAILS TO ENTER THE HOME AND ABOUT 11 STEPS WITH HANDRAILS TO THE BEDROOM. PT IS FULLY INDEPENDENT WITH ADLS AND AMBULATION. SON REPORTS THAT PATIENT HAS NOT HAD HH IN THE PAST OR BEEN TO REHAB/SNF. PT WAS ADMITTED WITH SBO AND CURRENTLY IS ON CLEAR LIQUIDS. PT/OT ORDERED FOR PATIENT. SON DOES NOT ANTICIPATE THEY WILL NEED HH BUT THERAPY EVALS PENDING. CM WILL CONTINUE TO FOLLOW TO ASSIST NEEDED.
[2018-04-14 16:20] VITALS: BP 121/42
--- NOTE | 2018-04-14 18:27 | NUR ---
PATIENT BEEN SLOWLY TITRATED BACK TO BASELINE 3LPM NC. HE IS CURRENTLY SATING AT 96%. HE IS MORE ALERT THIS PM. AMBULATES TO BATHROOM WITH VERY MINIMAL ASSIST. NO COMPLAIN OF PAIN THROUGH THE DAY. ABDOMINAL SOUNDS STILL HYPOACTIVE. NEW ORDERS FOR SUPP. NOTED. WILL CONT WITH PLAN OF CARE.
[2018-04-14 20:17] VITALS: BP 130/46
--- NOTE | 2018-04-15 00:20 | NUR ---
PATIENT IS ALERT TO SELF AND TIME. PATIENT IS NON ALBANIAN SPEAKING. PATIENT IS SBA TO THE BATHROOM. FAMILY IS VERY HELPFUL. PATIENT IS ON 4L NC (3L IS BASE LINE) AND CPAP AT HS. PATIENT DENIES PAIN OR NAUSEA. PATIENTS INCISIONS ARE CLEAN DRY AND INTACT. UMBILICUS IS RED A LIL SWOLLEN (DR PAULINO IS AWARE PER DAY SHIFT). PATIENT LBM WAS 28TH BOWELS HYPOACTIVE NO BM SENSE SURGERY. SUPPOSITORY GIVEN. PATIENT IS RESTING COMFORTABLEY IN BED. WCM. PATIENT IS PROGRESSING TO GOALS.
[2018-04-15 02:34] VITALS: BP 146/59
[2018-04-15 04:03] VITALS: BP 134/50
--- NOTE | 2018-04-15 04:46 | NUR ---
PATIENT HAD SOME INTERMITTENT COMFOUSION THROUGH THE NIGHT. PATIENT WAS PULLING AT EQUIPMENT. PATIENTS TEMP WAS TREATED WITH MEDICATION.
[2018-04-15 05:49] LABS: ABSOLUTE NEUTROPHILS 6.9 thou/uL (1.4-8.2); BASOPHILS 0.1 % (0.0-2.0); EOSINOPHILS 2.1 % (0.0-3.0); HEMATOCRIT 34.6 % (42.0-52.0); HEMOGLOBIN 11.3 gm/dL (14.0-18.0); LYMPHOCYTES 17.7 % (24.0-44.0); MCH 27.5 pg (26.0-34.0); MCHC 32.8 g/dL (28.0-37.0); MCV 83.8 fL (80.0-100.0); MONOCYTES 8.6 % (1.0-8.0); PLATELET COUNT 274 thou/uL (150-400); POLYS 71.5 % (36.0-66.0); RBC 4.13 mil/uL (4.50-6.00); RDW 14.5 % (10.5-14.5); WBC 9.6 thou/uL (4.0-11.0)
[2018-04-15 06:09] LABS: ALBUMIN 2.4 g/dL (3.4-5.0); CALCIUM 8.7 mg/dL (8.5-10.1); CREATININE 1.1 mg/dL (0.7-1.3); MAGNESIUM 2.1 mg/dL (1.8-2.4); POTASSIUM 3.9 mmol/L (3.5-5.1); TOTAL BILIRUBIN 0.5 mg/dL (<0.1-1.0); TOTAL PROTEIN 6.8 g/dL (6.4-8.2)
[2018-04-15 07:18] VITALS: BP 130/58
[2018-04-15 15:47] VITALS: BP 147/57
--- NOTE | 2018-04-15 17:34 | NUR ---
PT IS ALERT TO SELF AND PLACE BUT CONFUSED AT TIMES. FAMILY AT BEDSIDE WITH PT AND BED ALARM ON FOR PT SAFETY. LUNGS ARE CLEAR TO DIMINISHED. ABDOMEN IS ROUND ACTIVE BOWEL SOUNDS AND PASSING GAS. SMALL SOFT BOWEL MOVEMENT. ADVANCE DIET. DURABOND ON ABDOMEN TO AREAS FROM SURGERY. ABDOMEN IS REDENED TO APEARANCE. POSSIBLE REACTION TO PREP FROM PROCEDURE. BOWEL SOUNDS ACTIVE X4 QUADRANTS. UP TO BATHROOM WITH ASSIST. NSR ON THE SAFETY BELT INSTALLER. PAIN MEDS GIVEN NEEDED. WILL CONTINUE TO ASSESS AND MONITOR PER NURSING CALL LIGHT WITHIN REACH IF NEEDS ASSISTANCE.
[2018-04-15 19:30] VITALS: BP 157/69
--- NOTE | 2018-04-16 04:53 | NUR ---
ASSUMED PT CARE AROUND 1900. PT CONFUSED AND RESTLESS MOST OF THE NIGHT. FAMILY AT BEDSIDE ALL SHIFT. PT WORE CPAP WITH 3L BLEED IN MOST OF THE NIGHT. DID NOT C/O OF VERY SIGNIFICANT ABDOMINAL PAIN TONIGHT. GIVEN TYLENOL ONCE FOR PAIN. NO C/O N/V. LAP SITES TO ABDOMEN C/D/I WITH DERMABOND. PT HAD DIFFICULTY VOIDING. BLADDER SCANNED, >500ML IN BLADDER. NOTIFIED OPERATIONS SUPERINTENDENT THINNER SPRAYER. STRAIGHT CATHED X1 PER ORDER. NOT PROGRESSING WELL TOWARD POC GOALS. WILL CONTINUE TO MONITOR FURTHER.
[2018-04-16 05:00] VITALS: BP 145/68
[2018-04-16 07:14] VITALS: BP 140/64
--- NOTE | 2018-04-16 09:58 | NUR ---
LATE MED ADM: PT'S FAMILY ASK THAT PT BE ALLOWED TO REST FOR NOW THEY STATE HE HAD A DIFFICULT NIGHT AND DIDN'T GET MUCH SLEEP
--- NOTE | 2018-04-16 14:21 | NUR ---
PHYSICIAN CALL: PLACED TO ALERT DR TO BVI OF 600ML, PT AMB TO RESTROOM AND HAD OUTPUT OF 200. WILL CONTINUE TO MONITOR AND CALL THE PHYSICIAN AGAIN LATER TO SEE IF ANY ORDERS. PT'S FAMILY STATE HE DOES NOT HAVE THIS ISSUE NORMALLY. HE ASKED HIS FATHER IF HE FELT URGENCY OR DISCOMFORT AND RELAYS THAT HIS FATHER SAID NO.
[2018-04-16 15:49] VITALS: BP 145/67
[2018-04-16 19:45] VITALS: BP 158/66
--- NOTE | 2018-04-17 03:16 | NUR ---
ASSUMED PT CARE AROUND 1900. PT WAS MUCH LESS RESTLESS TONIGHT. HE SLEPT MOST OF THE NIGHT. RESP EVEN AND UNLABORED. SLEPT WITH CPAP ON DURING THE NIGHT. PVR 455ML. STRAIGHT CATHED X1 PER ORDER. WILL CONTINUE TO MONITOR FOR URINARY RETENTION. FAMILY AT BEDSIDE ALL SHIFT. PROGRESSING TOWARD POC GOALS. WILL CONTINUE TO MONITOR FURTHER.
[2018-04-17 04:00] VITALS: BP 118/59
[2018-04-17 08:02] VITALS: BP 128/65
[2018-04-17] MEDS ORDERED: FLOMAX0.4 MG PO (09:12)
[2018-04-17] MEDS ORDERED: AUGMENTIN 875-1 EACH PO (09:12)
[2018-04-17] MEDS ORDERED: TRAMADOL 50 MG50 MG PO (09:26)
[2018-04-17 09:41] VITALS: BP 128/65
[2018-04-17 10:06] VITALS: BP 128/65
--- NOTE | 2018-04-17 10:07 | NUR ---
ON-GOING ASSESSMENT: CM REVIEWED CHART AND MET WITH PATIENT AND HIS SON AT THE BEDSIDE. PT IS BEING DISCHARGED HOME WITH HH, THEY HAVE NO PREFERENCE OF HH AGENCY AND REFERRAL WAS SENT TO [facility]. [facility] CAN ACCEPT PATIENT AND THEY WERE NOTIFIED OF DISCHARGE TODAY. PATIENT HAS OXYGEN ARRANGED AT HOME AND HAS CPAP AND NEBULIZER. PT REPORTS NO FURTHER NEEDS PRIOR TO DISCHARGE.
[2018-04-17 10:56] VITALS: BP 128/65
[2018-04-17 11:21] VITALS: BP 128/65
--- NOTE | 2018-04-17 11:48 | NUR ---
PT WILL DISCHARGE TO HOME WITH HOME HEALTH..DISCHARGE INSTRUCTIONS GIVEN..RX GIVEN TO SON..
== END 2018-04-17 11:53 | disposition home health service (06) | DRG 353 ==
LOC: ER 23:16 → 3W 04-12 02:24 → EROBS 04-12 02:24 → 3W 04-12 03:25 → ENTRNSPT 04-17 11:48 → EDTRNSPTSTS 04-17 11:50 → 3W 04-17 11:53
PROVIDERS: Emergency Medicine; Family Medicine; Internal Medicine; Surgery; ADMIT Hospitalist
PROC: 0WUF4JZ Supplement Abdominal Wall with Synthetic Substitute, Percutaneous Endoscopic Approach (ICD-10-PCS; principal; 2018-04-12)
PROC: 0D9670Z Drainage of Stomach with Drainage Device, Via Natural or Artificial Opening (ICD-10-PCS; principal; 2018-04-12)
DX: K42.0 Umbilical hernia with obstruction, without gangrene (principal); G92 Toxic encephalopathy; J96.21 Acute and chronic respiratory failure with hypoxia; J69.0 Pneumonitis due to inhalation of food and vomit; I10 Essential (primary) hypertension; J43.9 Emphysema, unspecified; F41.9 Anxiety disorder, unspecified; F32.9 Major depressive disorder, single episode, unspecified; K21.9 Gastro-esophageal reflux disease without esophagitis; G47.33 Obstructive sleep apnea (adult) (pediatric); I25.10 Atherosclerotic heart disease of native coronary artery without angina pectoris; I48.2 Chronic atrial fibrillation; K59.00 Constipation, unspecified; L53.8 Other specified erythematous conditions; R33.9 Retention of urine, unspecified; Z87.891 Personal history of nicotine dependence; Z79.899 Other long term (current) drug therapy; Z99.81 Dependence on supplemental oxygen
CPT/HCPCS: 10879; 50010; 50101; 50249; 50386; 50445; 50455; 50555; 50558; 50962; 50980; 50984; 51489; 52265; 53307; 54022; 54118; 56462; 56525; 56526; 57092; 62110; 62900; 65131; 70005